=== PATIENT | female | born 1930 | race African-American/Black ===

== ENCOUNTER 2017-05-15 22:06 | Emergency (ER) | payer OTHER, MEDICAID ==
[~2017-05-15] VITALS: Ht 160 cm; Wt 76.7 kg
[2017-05-15] MEDS ORDERED: HYDROcodone-ACET 5/325MG TAB PO ONE (23:30)
[2017-05-15] MEDS ORDERED: KETOROLAC TROMETH 60MG/2ML VIAL IM ONE (23:30)
[2017-05-15 23:31] VITALS: BP 164/87
== END 2017-05-16 00:19 | disposition home or self-care (01) ==
LOC: ER 22:08
DX: M54.2 Cervicalgia (principal); Z88.8 Allergy status to other drugs, medicaments and biological substances; W19.XXXA Unspecified fall, initial encounter; Y93.89 Activity, other specified; Y99.8 Other external cause status; Y92.89 Other specified places as the place of occurrence of the external cause
CPT/HCPCS: 70450; 72125; 73562; 96372; 99284; J1885

== ENCOUNTER 2019-01-03 15:10 | Inpatient (IN) | payer OTHER, MEDICAID ==
[~2019-01-03] VITALS: Ht 160 cm; Wt 75.1 kg
[2019-01-03 16:13] LABS: Basophils # (auto) 0.1 uL; Eosinophils # (auto) 0.1 uL; Eosinophils % (auto) 2.6 % (0.0-7.0); Hematocrit 35.3 % (36.0-46.0); Hemoglobin 11.8 g/dL (12.2-16.2); Lymphocytes # (auto) 1.7 uL; Lymphocytes % (auto) 31.3 % (10.0-50.0); Mean Corpuscular Hemoglobin 31.4 pg (28.0-32.0); Mean Corpuscular Hgb Conc. 33.3 g/dL (32.0-36.0); Mean Corpuscular Volume 94.3 fL (80.0-100.0); Monocytes # (auto) 0.6 uL; Monocytes % (auto) 10.3 % (0.0-12.0); Neutrophils # (auto) 2.9 uL; Neutrophils % (auto) 54.8 % (37.0-80.0); Nucleated Red Blood Cells % 0.1 %; Platelet Count (auto) 218 10^3/uL (140-450); Red Blood Cells 3.74 10^6/uL (4.0-5.20); White Blood Cell 5.4 10^3/uL (4.4-10.8)
[2019-01-03 16:29] LABS: Albumin 3.3 g/dL (3.4-5.0); BUN/Creatinine Ratio 18.3; Calcium 8.6 mg/dL (8.5-10.1); Potassium 4.2 mmol/L (3.5-5.1)
[2019-01-03] MEDS ORDERED: ACETAMINOPHEN 325 MG TAB PO ONE (16:30)
[2019-01-03 16:33] LABS: Bilirubin, Total 0.3 mg/dL (0.2-1.0); INR 0.94 (0.9-1.15); Partial Thromboplastin Time 27.1 sec (23.78-33.04); Prothrombin Time 10.1 sec (9.27-12.13); Total Protein 7.5 g/dL (6.4-8.2)
[2019-01-03 16:52] LABS: Urine Bacteria NONE SEEN /hpf (None Seen); Urine Blood Negative /uL (Negative); Urine Specific Gravity 1.007 (1.001-1.035); Urine WBC 2 /hpf (0 - 5)
[2019-01-03] MEDS ORDERED: FUROSEMIDE 40 MG/4 ML VIAL IV ONE (18:30)
[2019-01-03] MEDS ORDERED: GAB100C PO (21:04)
[2019-01-03] MEDS ORDERED: OME20T PO (21:04)
[2019-01-03] MEDS ORDERED: DICL50TA4 PO (21:04)
[2019-01-03] MEDS ORDERED: TRAM50TA2 PO (21:04)
[2019-01-03] MEDS ORDERED: DICL1GEL35 (21:04)
[2019-01-03] MEDS ORDERED: NITROGLYCERIN 0.4 MG SL TAB SL PRN (21:15)
[2019-01-03] MEDS ORDERED: ONDANSETRON HCL 4 MG/2 ML VIAL IV PRN (21:15)
[2019-01-03] MEDS ORDERED: DOCUSATE SOD 100 MG CAP PO PRN (21:15)
[2019-01-03] MEDS ORDERED: TEMAZEPAM 15 MG CAP PO PRN (21:15)
[2019-01-03] MEDS ORDERED: MORPHINE SULF INJ 2 MG/ML SYRINGE 1ML IV PRN (21:15)
[2019-01-03] MEDS ORDERED: cloNIDine HCL 0.1 MG TAB PO PRN (21:15)
[2019-01-03] MEDS: ACETAMINOPHEN 325 MG TAB PO PRN (22:20)
--- NOTE | 2019-01-03 22:30 | NUR ---
Telemetry admit from ER GRISELDA ACUÑA admitted to Telemetry unit after SBAR received. Patient oriented to Asmiat Lal, primary RN, unit, room, bed, and unit policies regarding patient care and visiting hours. Patient now on continuous telemetry monitoring, tele box # 31 and telemetry reading on arrival to unit is NSR 68 BPM. Patient weighed by bedscale and encouraged to call if they need something. All questions and concerns addressed, patient verbalized understanding.
[2019-01-03 23:00] VITALS: BP 144/75
--- NOTE | 2019-01-03 23:15 | NUR ---
Fall precautions note Patient assessed and determined to be fall risk. Fall precautions in place, including side bedrails up X 2, bed alarms on, fall risk wristband in place. Patient instructed to call staff regarding any needs involving getting out of bed or bathroom needs. Patient verbalized understanding.
[2019-01-03] MEDS ORDERED: CHOL20007 OR (23:18)
[2019-01-04 04:54] VITALS: BP 128/78
[2019-01-04] MEDS: FUROSEMIDE 20 MG TAB PO SCH ×2 (05:42→17:48)
[2019-01-04 05:51] LABS: Basophils # (auto) 0.1 uL; Basophils % (auto) 1.1 % (0.0-2.0); Eosinophils # (auto) 0.1 uL; Eosinophils % (auto) 2.1 % (0.0-7.0); Hematocrit 34.2 % (36.0-46.0); Hemoglobin 11.6 g/dL (12.2-16.2); Lymphocytes # (auto) 1.7 uL; Lymphocytes % (auto) 29.8 % (10.0-50.0); Mean Corpuscular Hemoglobin 31.8 pg (28.0-32.0); Mean Corpuscular Hgb Conc. 33.9 g/dL (32.0-36.0); Mean Corpuscular Volume 93.8 fL (80.0-100.0); Monocytes # (auto) 0.4 uL; Monocytes % (auto) 7.9 % (0.0-12.0); Neutrophils # (auto) 3.3 uL; Neutrophils % (auto) 59.1 % (37.0-80.0); Platelet Count (auto) 209 10^3/uL (140-450); Red Blood Cells 3.64 10^6/uL (4.0-5.20); Red Cell Distribution Width 13.8 % (11.8-14.3); White Blood Cell 5.7 10^3/uL (4.4-10.8)
[2019-01-04 06:11] LABS: Calcium 8.9 mg/dL (8.5-10.1); Potassium 3.9 mmol/L (3.5-5.1)
[2019-01-04 06:15] LABS: BUN/Creatinine Ratio 19.6
--- NOTE | 2019-01-04 07:30 | NUR ---
OPENING NOTE ASSUMED CARE OF PT. PT IS SITTING ON BED, HOB SEMI-FOWLERS. ALERT AND AWAKE. ON ROOM AIR. NO SIGNS OF SOB/DISTRESS NOTED. PT ON TELE #31. SAFETY PRECAUTIONS IN PLACE INCLUDING, BED SET TO LOWEST POSITION/LOCKED. BEDSIDE RAILS UP X2. BED ALARM ON. CALL LIGHT WITHIN REACH. INSTRUCTED PT TO CALL FOR ASSISTANCE. DISCUSSED POC WITH PT. PT VERBALIZED UNDERSTANDING. WILL CONTINUE TO MONITOR Q 1HR AND PRN.
[2019-01-04 08:02] VITALS: BP 132/89
[2019-01-04] MEDS ORDERED: PANTOPRAZOLE 40 MG TAB PO SCH (10:00)
[2019-01-04] MEDS ORDERED: ENOXAPARIN SOD 30 MG/0.3 ML SYRINGE SC SCH (10:00)
[2019-01-04] MEDS ORDERED: ASPirin 81 mg TAB PO SCH (10:00)
[2019-01-04] MEDS ORDERED: amLODIPine BESYLATE 5 MG TAB PO SCH (10:00)
[2019-01-04 12:35] VITALS: BP 130/82
--- NOTE | 2019-01-04 14:11 | NUR ---
MADE DR. CEDEÑO WAS MADE AWARE MRI REPORTS WILL BE AVAILABLE UNTIL [phone].
[2019-01-04] MEDS ORDERED: LORazepam 2MG/ML-1ML VIAL IV ONE (14:15)
--- NOTE | 2019-01-04 15:32 | NUR ---
PATIENT HAS BEEN ACCEPTED BY [facility]. START OF CARE WILL BE 24 TO 48 HOURS AFTER DISCHARGE. [phone].
--- NOTE | 2019-01-04 16:50 | NUR ---
assessment Patient is a 88 year old female who is alert and oriented. Per patients granddaughter Jalil Prior to admission patient lived home with family and functioned with assistance. Per Jalil she will return home to her prior living arrangements post discharge and family will transport her home. Patients PCP is Dr Shepherd. I informed Jalil she has a right to speak to a mental health social worker regarding all care. I informed Jalil she has a right to participate in any and all discharge planning. Jalil is aware of visiting hours on the hospital floor. I informed Jalil patient has a right to privacy. Patient does not have a POA and advanced directive. I have offered family information on POA and advanced directives. I informed family the advantages and benefits of having an Advanced Directive. Jalil verbalized understanding and agreed to discharge plan. Per ss consult home health evaluation. Joaquin case assembler is satisfying consult. Addendum: 01/04/19 at 1653 by Michelle CORCORAN Amended: Links added.
[2019-01-04 16:57] VITALS: BP 122/79
--- NOTE | 2019-01-04 17:25 | NUR ---
PAGED DR. DAHL TO OBTAIN CLEARANCE FOR DISCHARGE. AWAITING CALL BACK.
--- NOTE | 2019-01-04 17:29 | NUR ---
PAGED DR. CLARK TO OBTAIN CLEARANCE FOR DISCHARGE. AWAITING CALL BACK.
--- NOTE | 2019-01-04 17:41 | NUR ---
SPOKE TO DR. DAHL VIA TELEPHONE. PER DR. DAHL PATIENT IS CLEARED FROM HIS STANDPOINT.
--- NOTE | 2019-01-04 18:22 | NUR ---
2ND PAG[address] DR[address] CLARK TO OBTAIN CLEARANCE FOR DISCHARGE. AWAITING CALL BACK.
[2019-01-04 18:31] VITALS: BP 122/79
--- NOTE | 2019-01-04 18:45 | NUR ---
SPOKE TO DR. CLARK VIA TELEPHONE. PER MD PATIENT IS CLEARED FROM HIS STANDPOINT.
[2019-01-04] MEDS: ACETAMINOPHEN 325 MG TAB PO PRN (18:52)
--- NOTE | 2019-01-04 19:00 | NUR ---
Discharge instructions given as ordered. Encourage to follow up with PMD as instructed. All questions and concerns addressed. Patient verbalized understanding. IV removed with catheter intact, pressure dressing applied. Telemetry unit returned to ICU.
--- NOTE | 2019-01-04 19:05 | NUR ---
Patient taken to vehicle via wheelchair with all personal belongings, accompanied by staff and family member. No distress noted at time of departure.
== END 2019-01-04 19:05 | disposition home health service (06) | DRG 291 ==
LOC: EDBD 15:10 → ER 15:15 → TELE 21:13 → TELE-WESTW 22:35
PROVIDERS: ADMIT Nurse Practitioner; ATTEND Internal Medicine
DX: I13.0 Hypertensive heart and chronic kidney disease with heart failure and stage 1 through stage 4 chronic kidney disease, or unspecified chronic kidney disease (principal); I50.31 Acute diastolic (congestive) heart failure; J98.11 Atelectasis; R55 Syncope and collapse; M19.90 Unspecified osteoarthritis, unspecified site; K21.9 Gastro-esophageal reflux disease without esophagitis; R51 Headache; G62.9 Polyneuropathy, unspecified; N18.3 Chronic kidney disease, stage 3 (moderate); Z82.49 Family history of ischemic heart disease and other diseases of the circulatory system; Z83.3 Family history of diabetes mellitus; Z88.5 Allergy status to narcotic agent; Z88.8 Allergy status to other drugs, medicaments and biological substances; Z79.899 Other long term (current) drug therapy; Z88.0 Allergy status to penicillin
CPT/HCPCS: 36415; 70450; 70545; 70547; 70551; 71045; 80048; 80053; 81001; 83735; 83880; 84484; 85025; 85610; 85730; 93005; 93306; 93886; 94761; 96372; 96374; G0378

== ENCOUNTER 2020-08-01 11:38 | Inpatient (IN) | payer OTHER, MEDICAID ==
[~2020-08-01] VITALS: Ht 160 cm; Wt 74.8 kg
[~2020-08-01 11:38] MED LIST: ASPI81CH43 PO; ATOR20TA50 PO; CHOL20007 OR; DICL1GEL50; GAB100C PO; KEP500T PO; NITR-87 PO; OME20T PO; TRAM50TA2 PO
[2020-08-01 14:33] LABS: Basophils # (auto) 0 10 ^3/uL (0-0.2); Basophils % (auto) 0.6 % (0.0-2.0); Eosinophils # (auto) 0 10 ^3/uL (0-0.8); Hematocrit 40.9 % (36.0-46.0); Hemoglobin 13.5 g/dL (12.2-16.2); Lymphocytes # (auto) 1.3 10 ^3/uL (0.4-5.4); Lymphocytes % (auto) 17.6 % (10.0-50.0); Mean Corpuscular Hemoglobin 31.2 pg (28.0-32.0); Mean Corpuscular Hgb Conc. 33.1 g/dL (32.0-36.0); Mean Corpuscular Volume 94.4 fL (80.0-100.0); Monocytes # (auto) 0.6 10 ^3/uL (0-1.3); Monocytes % (auto) 7.8 % (0.0-12.0); Neutrophils # (auto) 5.6 10 ^3/uL (1.6-8.6); Platelet Count (auto) 152 10^3/uL (140-450); Red Blood Cells 4.34 10^6/uL (4.0-5.20); White Blood Cell 7.5 10^3/uL (4.4-10.8)
[2020-08-01 15:05] LABS: Albumin 3.5 g/dL (3.4-5.0); Anion Gap 8 (5-15); BUN/Creatinine Ratio 18.2; Blood Urea Nitrogen 20 mg/dL (7-18); Calcium 8.4 mg/dL (8.5-10.1); Carbon Dioxide 25 mmol/L (21-32); Chloride 101 mmol/L (98-107); GFR African American 60 mL/min; GFR Non-African American 50 mL/min; Glucose 119 mg/dL (74-106); Potassium 3.8 mmol/L (3.5-5.1); Sodium 134 mmol/L (136-145)
[2020-08-01 15:10] LABS: Alanine Aminotransferase 16 U/L (13-56); Alkaline Phosphatase 112 U/L (45-117); Aspartate Aminotransferase 19 U/L (15-37); Bilirubin, Total 1.1 mg/dL (0.2-1.0); Total Protein 8.4 g/dL (6.4-8.2)
[2020-08-01] MEDS ORDERED: methylPREDNISolone SOD SUCC 125 MG/2 ML VL IV ONE (15:30)
[2020-08-01] MEDS ORDERED: AZITHROMYCIN 500MG/ 250ML 250 ML IV ONE (15:30)
[2020-08-01] MEDS ORDERED: ZINC SULFATE 220mg CAP or TAB PO ONE (15:30)
[2020-08-01] MEDS ORDERED: ASCORBIC ACID 500 MG TAB PO ONE (15:30)
[2020-08-01] MEDS ORDERED: ACETAMINOPHEN 325 MG TAB PO ONE (18:00)
[2020-08-01] MEDS ORDERED: NITROGLYCERIN 0.4 MG SL TAB SL PRN (18:30)
[2020-08-01] MEDS ORDERED: REMDESIVIR PER PHARMACY IV SCH (19:15)
[2020-08-01] MEDS ORDERED: ONDANSETRON HCL 4 MG/2 ML VIAL IV PRN (19:15)
[2020-08-01] MEDS ORDERED: ACETAMINOPHEN 500 MG TAB PO PRN (19:15)
[2020-08-01] MEDS ORDERED: ALBUTEROL SULF HFA 90MCG INH 200DOSE IN PRN (19:15)
[2020-08-01] MEDS ORDERED: traMADol HCL 50 MG TAB PO PRN (19:15)
[2020-08-01] MEDS: ENOXAPARIN SOD 40 MG/0.4 ML SYRINGE SC SCH (23:10)
[2020-08-01] MEDS: SODIUM CHLORIDE 0.9% 1,000 ML IV SCH (23:10)
[2020-08-02] MEDS: SODIUM CHLORIDE 0.9% 1,000 ML IV SCH ×2 (08:35→22:08)
[2020-08-02] MEDS: ZINC SULFATE 220mg CAP or TAB PO SCH (09:48)
[2020-08-02] MEDS: CHOLECALCIFEROL (VITD3) 2,000 UNIT CAP PO SCH (09:48)
[2020-08-02] MEDS: ENOXAPARIN SOD 40 MG/0.4 ML SYRINGE SC SCH (09:48)
[2020-08-02] MEDS: DexAMETHasone SOD PHOS 10MG/1ML VIAL INJ IV SCH (09:48)
[2020-08-02] MEDS: ASCORBIC ACID 1,000 MG TAB PO SCH (09:48)
[2020-08-02] MEDS: BUDESONIDE (INHALATION) 180 MCG IH IN SCH ×2 (10:00→22:09)
[2020-08-02] MEDS ORDERED: SODIUM CHLORIDE 0.9% 1,000 ML IV ONE (11:00)
[2020-08-02] MEDS ORDERED: IOHEXOL 350 MG/ML 100ML IJ ONE (12:49)
[2020-08-02 14:33] LABS: Basophils # (auto) 0 10 ^3/uL (0-0.2); Basophils % (auto) 0.3 % (0.0-2.0); Eosinophils # (auto) 0 10 ^3/uL (0-0.8); Hematocrit 38.3 % (36.0-46.0); Hemoglobin 13.1 g/dL (12.2-16.2); Lymphocytes % (auto) 13.3 % (10.0-50.0); Mean Corpuscular Hgb Conc. 34.3 g/dL (32.0-36.0); Mean Corpuscular Volume 93.3 fL (80.0-100.0); Monocytes # (auto) 0.5 10 ^3/uL (0-1.3); Monocytes % (auto) 6.7 % (0.0-12.0); Neutrophils # (auto) 6.1 10 ^3/uL (1.6-8.6); Neutrophils % (auto) 79.7 % (37.0-80.0); Platelet Count (auto) 148 10^3/uL (140-450); Red Blood Cells 4.11 10^6/uL (4.0-5.20); White Blood Cell 7.7 10^3/uL (4.4-10.8)
[2020-08-02 14:54] LABS: Calcium 8.4 mg/dL (8.5-10.1); Potassium 3.8 mmol/L (3.5-5.1)
[2020-08-02 14:55] LABS: INR 1.06 (0.9-1.15); Partial Thromboplastin Time 34.7 sec (23.0-31.2)
[2020-08-02 15:03] LABS: BUN/Creatinine Ratio 27.3; CRP High Sensitivity 8.25 mg/dL (< 0.3)
--- NOTE | 2020-08-02 17:05 | NUR ---
Telemetry admit from ER GRISELDA ACUÑA admitted to Telemetry unit after SBAR received. Patient oriented to Monique farooq RN, unit, room, bed, and unit policies regarding patient care and visiting hours. Patient now on continuous telemetry monitoring, tele box # 40 and telemetry reading on arrival to unit is ST 118 . Patient weighed by bedscale and encouraged to call if they need something. All questions and concerns addressed, patient verbalized understanding.
--- NOTE | 2020-08-02 17:15 | NUR ---
PULMONOLOGY AT BEDSIDE MD UPDATED OF CT ANGIO RESULTS, NEW ORDERS RECEIVED FOR FANY, RBO, CONT CARE
[2020-08-02 17:18] VITALS: BP 153/93
--- NOTE | 2020-08-02 18:55 | NUR ---
FAMILY UPDATE SPOKE WITH GRANDDAUGHTER ADRIANO, [facility]
--- NOTE | 2020-08-02 19:00 | NUR ---
Opening Shift Note Assumed care of patient, awake and alert. No S/S of distress/SOB or pain. Instructed on POC and to call for assist PRN, will continue to monitor for changes Q1hr and PRN.
[2020-08-02] MEDS: APIXABAN 5 MG TAB PO SCH (21:24)
[2020-08-02 22:00] VITALS: BP 149/78
[2020-08-02] MEDS: ALBUTEROL SULF HFA 90MCG INH 200DOSE IN SCH (22:09)
--- NOTE | 2020-08-02 23:09 | NUR ---
PAIN RECHECK WENT IN TO REASSESS PATIENTS RESPONSE TO TRAMADOL AND PATIENT SAID SHE IS STILL HAVING PAIN. I ASKED IF SHE WOULD LIKE SOMETHING ELSE FOR PAIN. SHE SAID NO I WILL BE FINE IF I CAN JUST GO TO SLEEP.
[2020-08-03 05:00] VITALS: BP 154/87
[2020-08-03 06:34] LABS: Basophils # (auto) 0 10 ^3/uL (0-0.2); Basophils % (auto) 0.2 % (0.0-2.0); Eosinophils # (auto) 0 10 ^3/uL (0-0.8); Hematocrit 38.8 % (36.0-46.0); Hemoglobin 12.5 g/dL (12.2-16.2); Lymphocytes # (auto) 0.9 10 ^3/uL (0.4-5.4); Lymphocytes % (auto) 7.7 % (10.0-50.0); Mean Corpuscular Hemoglobin 30.6 pg (28.0-32.0); Mean Corpuscular Hgb Conc. 32.3 g/dL (32.0-36.0); Mean Corpuscular Volume 94.7 fL (80.0-100.0); Monocytes # (auto) 0.8 10 ^3/uL (0-1.3); Monocytes % (auto) 6.9 % (0.0-12.0); Neutrophils # (auto) 9.6 10 ^3/uL (1.6-8.6); Neutrophils % (auto) 85.2 % (37.0-80.0); Platelet Count (auto) 161 10^3/uL (140-450); White Blood Cell 11.3 10^3/uL (4.4-10.8)
[2020-08-03 07:19] LABS: BUN/Creatinine Ratio 22.4; CRP High Sensitivity 6.01 mg/dL (< 0.3); Calcium 8.3 mg/dL (8.5-10.1)
[2020-08-03] MEDS: ALBUTEROL SULF HFA 90MCG INH 200DOSE IN SCH (07:20)
[2020-08-03] MEDS: BUDESONIDE (INHALATION) 180 MCG IH IN SCH ×2 (07:21→19:31)
--- NOTE | 2020-08-03 08:30 | NUR ---
Patient instructed to lay on stomach as much as possible, patient verbalized understanding but does not want to be on stomach at this time. I explained benefits of proning and risks of not proning, patient stated "maybe later", will continue to reinforce.
[2020-08-03 08:31] VITALS: BP 144/76
--- NOTE | 2020-08-03 09:00 | NUR ---
family called with wrong password. not able to give information. she stated she will text family and get the password.
[2020-08-03] MEDS: APIXABAN 5 MG TAB PO SCH (09:44)
[2020-08-03] MEDS: DexAMETHasone SOD PHOS 10MG/1ML VIAL INJ IV SCH (09:44)
[2020-08-03] MEDS: ASCORBIC ACID 1,000 MG TAB PO SCH (09:44)
[2020-08-03] MEDS: ZINC SULFATE 220mg CAP or TAB PO SCH (09:44)
[2020-08-03] MEDS: CHOLECALCIFEROL (VITD3) 2,000 UNIT CAP PO SCH (09:44)
[2020-08-03] MEDS ORDERED: TRAV0.0013 EACHEYE (09:47)
[2020-08-03] MEDS ORDERED: BACL10TA PO (09:47)
--- NOTE | 2020-08-03 10:50 | NUR ---
Family contact. Spoke with family, gave an update. Asked family to encourage patient to lay on her stomach and let them know I would also continue to encourage her.
[2020-08-03] MEDS: SODIUM CHLORIDE 0.9% 1,000 ML IV SCH (11:24)
--- NOTE | 2020-08-03 12:08 | NUR ---
Family called (Son), with wrong password. Did not give information per HIPPA policy. Family member said he would call back.
--- NOTE | 2020-08-03 12:20 | NUR ---
Family contact with Kandice, password provided, update provided.
[2020-08-03 12:25] VITALS: BP 143/88
--- NOTE | 2020-08-03 13:15 | NUR ---
Patient family member (Ed) contact, requesting update on patient status, provided password and update then family wanted to talk to patient, when to patient room and answered phone for patient, patient talked to family.
[2020-08-03] MEDS ORDERED: guaiFENesin-DM 100/10mg/5ml SYR PO PRN (14:15)
[2020-08-03] MEDS ORDERED: SODIUM CHLORIDE 0.9% 1,000 ML IV ONE (14:30)
--- NOTE | 2020-08-03 15:00 | NUR ---
friend called for update on patient, did not have password.
--- NOTE | 2020-08-03 16:19 | NUR ---
I faxed home health order to [facility], and home oxygen order to [facility]. I faxed both orders to [facility]-asking for authorization for [facility] and [facility].
[2020-08-03 16:40] VITALS: BP 127/60
--- NOTE | 2020-08-03 17:09 | NUR ---
I called [facility] and spoke with Andie, she will send authorization to [facility] and . I called [facility] [phone] and left message asking them to call nurse's station with ETA for portable oxygen tank. I spoke with nurse Gan and made her aware.
--- NOTE | 2020-08-03 17:40 | NUR ---
Patients elevating legs, patient states they hurt and she has neuropathy, she states she skipped a night of medication and they hurt very bad, and it is very hard for her to sleep when they hurt. I asked patient if she wanted to take anything for pain, but she declined pain medication and said she would take her gabapentin at home.
[2020-08-03] MEDS ORDERED: DOXY-346 PO (17:57)
[2020-08-03] MEDS ORDERED: ZINC220C10 PO (17:57)
[2020-08-03] MEDS ORDERED: APIX5TAB PO (17:57)
[2020-08-03] MEDS ORDERED: DEXA6TAB6 PO (17:57)
[2020-08-03] MEDS ORDERED: ASCO10003 PO (17:57)
[2020-08-03] MEDS ORDERED: IPRIH IN (17:57)
[2020-08-03] MEDS ORDERED: DEXT1SYP9 PO (17:57)
[2020-08-03] MEDS ORDERED: CHOL1CAP47 PO (17:57)
[2020-08-03] MEDS ORDERED: ALBUAER3 IN (17:57)
[2020-08-03 18:02] VITALS: BP 128/78
--- NOTE | 2020-08-03 18:05 | NUR ---
Called family to notify of discharge. Family states they are able to pick patient up for DC.
--- NOTE | 2020-08-03 18:15 | NUR ---
Family member yamilet called for information regarding discharge, asking if Covid is still contagious and what the protocol is for quarantine and what family should do, I educated family on isolation and explained that information would be in a packet in her discharge packet as well. Family member verbalized understanding.
--- NOTE | 2020-08-03 18:20 | NUR ---
Family called stating that other family members aren't comfortable with her discharging home tonight and want the DC help until tomorrow, I explained that the Dr discharged her for today and she would have to be picked up at some point tonight, I also let them know that she is ready to go now with paperwork. Family stated they would talk to family and call back.
--- NOTE | 2020-08-03 18:27 | NUR ---
family called to speak to charge nurse. Call transferred to charge.
--- NOTE | 2020-08-03 18:40 | NUR ---
family contact- family asking what patient is taking for pain, let them know I offered her tramadol and tylenol but she refused. Will attempt to offer again.
--- NOTE | 2020-08-03 18:49 | NUR ---
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
--- NOTE | 2020-08-03 19:00 | NUR ---
Patient given education on medications, discharge instructions, verbalized understanding, had poor attention, however patient family was also told medications over phone and dc instructions. Explained home health nurse would be by to see possibly tomorrow and that oxygen would be taken to patients home, although patient is on RM air, she has it if she should need it.
--- NOTE | 2020-08-03 19:40 | NUR ---
SON CALLED RE: DISCHARGE, PER FAMILY NO ONE IS AVAILABLE TO TAKE CARE OF PT TONKETTY SINCE HIS SISTER IS NOT AT HOME AT THI TIME AND HE IS WORKING A COMMERCIAL ADMINISTRATOR AND OUT OF STATE. HE STATED THAT HIS LINDA ALLOWED HIM TO GO BACK HOME TO BALANCE WHEEL [employer]ION INSPECT[employer] HIS MOM AND WILL BE HOME AROUND 12 NOON. HE ALSO STATED THAT HE DOES NOT WANT HIS NIECE TO [employer]ANCE WHE[employer] HIS MOM. AND HE INFORMED CHARGED DAY SHIFT PREM REGARDING THIS MATTER. INFORMED HIM I WILL CONTACT PRIMARY RN ZAIRE TO INFORM HER RE: HIS CONCERN. VERBALIZES UNDERSTANDING.
--- NOTE | 2020-08-03 19:45 | NUR ---
AFTER SPEAKING WITH THE SON, ATTEMPTED TO CALL PRIMARY RN ABOUT HIS CONCERNED AND TO CALL MD REGARDING THIS MATTER,AND WAS TOLD PRIMARY RN ALREADY TOOK PT DOWNSTAIRS AND DISCHARGED HER. CALLED ROME MCQUEEN AND INFORMED HER RE: HER UNCLE'S CONCERN AND SHE STATED SHE WILL TALK TO HIM.
--- NOTE | 2020-08-03 19:45 | NUR ---
DISCHARGE PATIENT LEFT VIA W/C ACCOMPANIED BY RN. TELEMETRY BOX REMOVED, 2 IV'S REMOVED WITH CATHETER INTACT.VSS. RT MADE ROUNDS AND GAVE PATIENT INHALERS. MEDICATIONS EXPLAINED TO FAMILY PICKING UP PATIENT.
[2020-08-03] MEDS ORDERED: ALBUTEROL SULF HFA 90MCG INH 200DOSE IN PRN (21:15)
[2020-08-09] MEDS ORDERED: APIXABAN 5 MG TAB PO SCH (22:00)
== END 2020-08-03 19:45 | disposition home health service (06) | DRG 177 ==
LOC: ER 11:38 → EDUNIT# 11:38 → EDBD 11:38 → TELE 11:39 → TELE-CENTR 08-02 17:03
PROVIDERS: ADMIT Internal Medicine; ATTEND Internal Medicine
PROC: XW033E5 Introduction of Remdesivir Anti-infective into Peripheral Vein, Percutaneous Approach, New Technology Group 5 (ICD-10-PCS; principal; 2020-08-01)
DX: U07.1 COVID-19 (principal); I26.99 Other pulmonary embolism without acute cor pulmonale; J12.89 Other viral pneumonia; J96.01 Acute respiratory failure with hypoxia; J15.9 Unspecified bacterial pneumonia; Z88.8 Allergy status to other drugs, medicaments and biological substances; G40.909 Epilepsy, unspecified, not intractable, without status epilepticus; M54.9 Dorsalgia, unspecified; G62.9 Polyneuropathy, unspecified; G89.29 Other chronic pain; K21.9 Gastro-esophageal reflux disease without esophagitis; Z82.49 Family history of ischemic heart disease and other diseases of the circulatory system; Z83.3 Family history of diabetes mellitus; Z88.5 Allergy status to narcotic agent; Z88.0 Allergy status to penicillin
CPT/HCPCS: 36415; 71045; 71275; 80048; 80053; 82728; 83605; 83880; 84484; 85025; 85379; 85610; 85730; 86141; 87040; 87426; 93970; 94640; G0378; J1100; J1956